=== PATIENT | male | born 2000 | race Caucasian/White ===

== ENCOUNTER 2022-09-18 00:26 | Emergency (ER) | payer OTHER, SELFPAY ==
[2022-09-18 00:42] VITALS: BP 157/99; PULSE 85; RESP 16; TEMP 36.6; O2SAT 100; BMI 31.4
[2022-09-18 00:47] VITALS: PULSE 87; O2SAT 99
[2022-09-18 01:00] VITALS: PULSE 89; O2SAT 98
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
[2022-09-18 01:27] VITALS: PULSE 80; O2SAT 98
[2022-09-18 01:28] VITALS: BP 142/89
[2022-09-18 01:32] VITALS: BP 142/89; PULSE 87; RESP 16; TEMP 36.8; O2SAT 97
== END 2022-09-18 01:33 | disposition home or self-care (01) ==
PROVIDERS: Emergency Provider Emergency Medicine
DX: S06.0X0A Concussion without loss of consciousness, initial encounter (principal); V89.2XXA Person injured in unspecified motor-vehicle accident, traffic, initial encounter
CPT/HCPCS: 99281; A9270